=== PATIENT | male | born 1965 | race African-American/Black ===

== ENCOUNTER 2020-02-14 14:23 | Emergency (ER) | payer OTHER ==
[~2020-02-14] VITALS: Ht 180.3 cm; Wt 81.6 kg
[2020-02-14] MEDS ORDERED: DiphenhydrAMINE 50mg/ml Inj IVP ONE (15:00)
--- NOTE | 2020-02-14 15:00 | NUR ---
ED Nurse Note:pt. was BIBA from the street with suisidal ideations about cutting his wrists and voices telling him to do that. pt. is A/Ox4 ambulatory ,tolkative , very compliant, blood and urine sent to labs, given iv fluid and PO meds
[2020-02-14 15:03] LABS: BASOPHILS % (AUTO) 1.1 % (0.0-2.0); HEMATOCRIT 48.4 % (42.0-52.0); HEMOGLOBIN 15.6 G/DL (14.2-18.0); LYMPHOCYTES % (AUTO) 17.4 % (20.0-45.0); MEAN CORPUSCULAR VOLUME 91 FL (80-99); NEUTROPHILS % (AUTO) 72.5 % (45.0-75.0); PLATELET COUNT 231 K/UL (150-450); RED CELL DISTRIBUTION WIDTH 15.6 % (11.6-14.8); WHITE BLOOD COUNT 6.1 K/UL (4.8-10.8)
[2020-02-14 15:09] LABS: ANION GAP 12 mmol/L (5-15); BLOOD UREA NITROGEN 7 mg/dL (7-18); CALCIUM 8.8 MG/DL (8.5-10.1); CARBON DIOXIDE 25 MMOL/L (21-32); CHLORIDE 102 MMOL/L (98-107); CREATININE 1.2 MG/DL (0.55-1.30); POTASSIUM 3.9 MMOL/L (3.5-5.1); SODIUM 139 MMOL/L (136-145)
[2020-02-14 15:13] LABS: ALANINE AMINOTRANSFERASE < 6 U/L (12-78); ALBUMIN 4.1 G/DL (3.4-5.0); ALKALINE PHOSPHATASE 88 U/L (46-116); ASPARTATE AMINO TRANSFERASE 8 U/L (15-37); BILIRUBIN,TOTAL 0.5 MG/DL (0.2-1.0)
--- NOTE | 2020-02-14 15:20 | NUR ---
ED Nurse Note:pt.'s belongings placed to locker 3, sitter is in the room, SI precausions
[2020-02-14 16:16] VITALS: BP 130/93
--- NOTE | 2020-02-14 16:46 | NUR ---
ED Nurse Note: Received patient from fast track.
--- NOTE | 2020-02-14 18:53 | Emergency Room Report ---
History of Present Illness General Chief Complaint: Behavioral Complaint Source: EMS Present Illness HPI 54-year-old male with history of schizophrenia currently taking Resporal brought in by paramedics due to having hallucinations. Patient reports that earlier today the hallucinations were telling him to hurt himself however does not have a plan. Patient reports the last time he took Resporal was few days ago. Patient does not have established psychiatrist. Patient is looking into voluntarily going to a psychiatric facility. Denies homicidal ideation. Denies chest pain, shortness of breath, headache and dizziness per denies any drug use and tobacco smoke. Allergies: Coded Allergies: No Known Allergies (Unverified , 02/14/20) COVID-19 Screening Contact w/high risk pt: No Experienced COVID-19 symptoms?: No COVID-19 Testing performed [employer]OR: No Patient History Past Medical History: see triage record Past Surgical History: unable to obtain Pertinent Family History: unable to obtain Reviewed Nursing Documentation: PMH: Agreed; PSxH: Agreed Nursing Documentation-PMH Past Medical History: No History, Except For History Of Psychiatric Problem: Yes - schizophrenia Review of Systems All Other Systems: negative except mentioned in HPI Physical Exam Vital Signs Date Time Temp Pulse Resp B/P (MAP) Pulse Ox O2 Delivery O2 Flow Rate FiO2 02/14/20 14:18 99.0 100 20 131/102 (112) 100 Room Air Sp02 EP Interpretation: reviewed, normal General Appearance: no apparent distress, alert, GCS 15, non-toxic Head: normocephalic, atraumatic Eyes: bilateral eye normal inspection, bilateral eye PERRL ENT: hearing grossly normal, normal pharynx, no angioedema, normal voice Neck: full range of motion, supple/symm/no masses Respiratory: chest non-tender, lungs clear, normal breath sounds, speaking full sentences Cardiovascular #1: regular rate, rhythm, no edema Gastrointestinal: soft Genitourinary: no CVA tenderness Musculoskeletal: back normal Neurologic: alert, motor strength/tone normal, oriented x3, sensory intact, responsive, speech normal Psychiatric: mood/affect normal Skin: no rash Lymphatic: no adenopathy Medical Decision Making PA Attestation All diagnoses and treatment plans were reviewed and discussed with my supervising physician Dr. Link Diagnostic Impression: Primary Impression: Schizophrenia ER Course 54-year-old male with history of schizophrenia currently taking Resporal brought in by paramedics due to having hallucinations. Patient reports that earlier today the hallucinations were telling him to hurt himself however does not have a plan. Patient reports the last time he took Resporal was few days ago. Patient does not have established psychiatrist. Patient is looking into voluntarily going to a psychiatric facility. Denies homicidal ideation. Denies chest pain, shortness of breath, headache and dizziness per denies any drug use and tobacco smoke. Ddx considered but are not limited to: generalized anxiety disorder, panic attack, depression with psychotic feature, bipolar disorder, drug overdose Vital signs: are WNL, pt. is afebrile H&PE are most consistent with: Schizophrenia ORDERS: Psychiatric order set, Risperdal, Benadryl ED INTERVENTIONS: Risperdal, Benadryl DISCHARGE: At this time pt. is stable for d/c to home. Will provide printed patient care instructions, and any necessary prescriptions. Care plan and follow up instructions have been discussed with the patient prior to discharge. Administration of risperidone Benadryl, and several hours past, patient receptive and request food and reports that he is interested in voluntary psychiatric placement. Patient given the list of psychiatric medicines did not seem patient agrees. Last Vital Signs Date Time Temp Pulse Resp B/P (MAP) Pulse Ox O2 Delivery O2 Flow Rate FiO2 02/14/20 16:16 99.0 95 18 130/93 100 Room Air Disposition: HOME, SELF-CARE Condition: Stable Scripts Diphenhydramine HCl (Benadryl) 25 Mg Capsule 25 MG PO DAILY, #14 CAP Prov: Mark Pedraza 02/14/20 Risperidone* (RISPERDAL*) 1 Mg Tablet 1 MG PO DAILY for 7 Days, #7 TAB Prov: Mark Pedraza 02/14/20 Referrals: [facility],REFERRING (PCP) Patient Instructions: Schizophrenia Additional Instructions: Follow-up with a psychiatrist, take medication as directed, if worsening symptoms return to the emergency room Mark Pedraza Feb 14, 2020 18:53
[2020-02-14] MEDS ORDERED: RISPERDAL1 MG PO (18:55)
[2020-02-14] MEDS ORDERED: BENADRYL25 M3 PO (18:56)
--- NOTE | 2020-02-14 19:21 | NUR ---
ER DISCHARGE NOTE: Patient is cleared to be discharged per ERMD, pt is aox4, on room air, with stable vital signs. pt was given dc and prescription instructions, pt was able to verbalize understanding, pt id band and iv site removed without complications. pt is able to ambulate with steady gait. pt took all belongings. Homeless log and mini cog completed. Pt refused to wait to get prescriptions meds filled. Pt provided resources. Meal provided.
[2020-02-14 19:22] VITALS: BP 130/93
== END 2020-02-14 19:24 | disposition home or self-care (01) ==
LOC: EDBD 14:23 → EMR 15:55
DX: F20.9 Schizophrenia, unspecified (principal)
CPT/HCPCS: 36415; 80053; 80307; 85025; 96361; 96374; G0480; G0481; J1200; J7030; Z7502; 99284